=== PATIENT | female | born 1965 | race Caucasian/White ===

== ENCOUNTER 2019-12-08 09:00 | Day surgery (SDC) | payer BC ==
[~2019-12-08 09:00] MED LIST: Lactated Ringers 1,000 ML IV SCH
[2019-12-08] MEDS ORDERED: Propofol 200 MG/20 ML SDV ONE ×2 (11:15→12:17)
[2019-12-08] MEDS ORDERED: fentaNYL 100 MCG/2 ML SDV ONE (11:16)
--- NOTE | 2019-12-08 13:01 | OR ---
PREOPERATIVE DIAGNOSIS: Screening colonoscopy. POSTOPERATIVE DIAGNOSIS: Screening colonoscopy. PROCEDURE PERFORMED: Screening colonoscopy. INDICATION: The patient is a 54-year-old female who presents for her first screening colonoscopy at this time. PROCEDURE IN DETAIL: This was done in the endoscopy suite. Sedation was given per Anesthesia. She was placed in left lateral position. First, a rectal exam was done and was normal. Scope was then introduced into the rectum and slowly advanced to the rectum, sigmoid, descending, transverse, and ascending colon until the cecum was reached. Upon reaching the cecum, scope was slowly withdrawn looking at all mucosal surfaces on the way out. No mucosal abnormalities, lesions, or polyps were noted. FINAL DIAGNOSIS: Normal colonoscopy. BKD: 12/08/2019 12:29:26 MODL: 12/08/2019 12:53:45 /[id number]
== END 2019-12-08 13:35 | disposition home or self-care (01) ==
LOC: VM.SDS 09:00
PROVIDERS: ATTEND Surgery
DX: Z12.11 Encounter for screening for malignant neoplasm of colon (principal); I10 Essential (primary) hypertension; J45.909 Unspecified asthma, uncomplicated; E88.81 Metabolic syndrome and other insulin resistance; R73.03 Prediabetes; Z79.899 Other long term (current) drug therapy; Z79.51 Long term (current) use of inhaled steroids; Z79.82 Long term (current) use of aspirin
CPT/HCPCS: J2704; J3010; J7120

== ENCOUNTER 2021-10-03 08:41 | Emergency (ER) | payer BC ==
[2021-10-03] MEDS ORDERED: Bamlanivimab 700 MG, ETESEVIMAB 1,400 MG in Sodium Chloride 0.9% 100 ML IV ONE (09:09)
[2021-10-03] MEDS ORDERED: Sodium Chloride 0.9% 10 ML Syringe FLUSH PRN (09:09)
[2021-10-03] MEDS ORDERED: diphenhydrAMINE 50 MG/ML SDV IVPUSH PRN (09:09)
[2021-10-03] MEDS ORDERED: EPINEPHrine 1 MG/1 ML Amp IM PRN (09:09)
[2021-10-03] MEDS ORDERED: Famotidine 20 MG/2 ML SDV IVPUSH PRN (09:09)
[2021-10-03] MEDS ORDERED: methylPREDNISolone Sodium Succinate 125 MG/2 ML SDV IVPUSH PRN (09:09)
[2021-10-03] MEDS ORDERED: Sodium Chloride 0.9% 10 ML Syringe FLUSH SCH (09:15)
--- NOTE | 2021-10-03 09:35 | EDM.PDOC ---
ED HPI GENERAL MEDICAL PROBLEM - General Chief Complaint: Respiratory Problem Stated Complaint: SOB Time Seen by Provider: 10/03/21 09:08 Source of Information: Reports: Patient History Limitations: Reports: No Limitations - History of Present Illness INITIAL COMMENTS - FREE TEXT/NARRATIVE: Patient presents to the ED for shortness of breath, body aches, cough, fatigue and covid positive. She has been ill for about 7 days. [facility] and tested positive. She had been having some dry heaves, loss of appetite and loss of smell and taste so she was also given IV fluids, zofran and toradol. All weekend she has been isolating, drinking fluids and taking tylenol for body aches. She was on the list to receive monoclonal antibodies today but presented to the ED with concerns for shortness of breath. she does have asthma, no nebulizer at home. Onset Date: 09/27/21 - Related Data Allergies Allergy/AdvReac Type Severity Reaction Status Date / Time MARJ Inhibitors Allergy Cough Verified 10/03/21 09:01 Home Meds: Home Meds Albuterol Sulfate [Proair Hfa] 2 puff IH Q4H 11/26/19 [History] Aspirin [Halfprin] 81 mg PO DAILY 11/26/19 [History] Cetirizine [ZyrTEC] 10 mg PO DAILY PRN 11/26/19 [History] Ferrous Sulfate 325 mg PO DAILY 11/26/19 [History] Fluticasone/Salmeterol [Advair 250-50] 1 puff INH BID 11/26/19 [History] Multivitamin [Multivitamins] 1 each PO DAILY 11/26/19 [History] Telmisartan 40 mg PO DAILY 11/26/19 [History] hydroCHLOROthiazide [Hydrochlorothiazide] 25 mg PO DAILY 11/26/19 [History] Albuterol Sulfate 0.63 mg IH Q4H PRN #30 vial.neb 10/03/21 [Rx] Benzonatate [Tessalon Perles] 100 mg PO Q8H PRN #30 cap 10/03/21 [Rx] Ondansetron [Zofran ODT] 4 mg PO Q6H PRN #15 tab.dis 10/03/21 [Rx] Potassium Chloride 20 meq PO BID #14 tab.er.prt 10/03/21 [Rx] Sodium Chloride 1,000 mg MC TID #12 tablet.daysi 10/03/21 [Rx] Past Medical History Cardiovascular History: Reports: Hypertension Respiratory History: Reports: Asthma Musculoskeletal History: Reports: None Neurological History: Reports: None Psychiatric History: Reports: None Endocrine/Metabolic History: Reports: Other (See Below) Other Endocrine/Metabolic History: impaired glucose. metabolic syndrome. prediabetes Hematologic History: Reports: None - Infectious Disease History Infectious Disease History: Reports: Novel Coronavirus - Past Surgical History Head Surgeries/Procedures: Reports: None GI Surgical History: Reports: Cholecystectomy Female Surgical History: Reports: LEEP Endocrine Surgical History: Reports: None Social & Family History - Tobacco Use Tobacco Use Status *Q: Never Tobacco User - Recreational Drug Use Recreational Drug Use: No Drug Use in Last 12 Months: No ED ROS GENERAL - Review of Systems Review Of Systems: See Below Constitutional: Reports: Chills, Malaise, Weakness, Fatigue, Decreased Appetite HEENT: Reports: Other (loss of smell and taste) Respiratory: Reports: Shortness of Breath, Cough. Denies: Wheezing Cardiovascular: Reports: Dyspnea on Exertion. Denies: Chest Pain, Edema GI/Abdominal: Reports: Decreased Appetite, Nausea. Denies: Abdominal Pain, Diarrhea : Reports: No Symptoms Musculoskeletal: Reports: Muscle Pain Skin: Reports: No Symptoms Neurological: Reports: Headache, Weakness Psychiatric: Reports: No Symptoms Hematologic/Lymphatic: Reports: No Symptoms ED EXAM, GENERAL - Physical Exam Exam: See Below Exam Limited By: No Limitations General Appearance: Alert, WD/WN, No Apparent Distress, Anxious, Other (weepy) Eye Exam: Bilateral Eye: EOMI, Normal Inspection, PERRL Ears: Normal External Exam, Normal Canal, Hearing Grossly Normal, Normal TMs Nose: Normal Inspection Throat/Mouth: Normal Inspection, Normal Lips, Normal Voice, No Airway Compromise, Other (mild dry mucous membranes) Head: Atraumatic Neck: Normal Inspection. No: Lymphadenopathy (L), Lymphadenopathy (R) Respiratory/Chest: No Respiratory Distress, Lungs Clear, Normal Breath Sounds, No Accessory Muscle Use Cardiovascular: Normal Peripheral Pulses, No Murmur, No Rub, Tachycardia GI/Abdominal: Normal Bowel Sounds, Soft, Non-Tender, No Abnormal Bruit. No: Rigid, Rebound Back Exam: Normal Inspection Extremities: Normal Inspection, Normal Range of Motion, Non-Tender, No Pedal Edema Neurological: Alert, Oriented, CN II-XII Intact, Normal Cognition, No Motor/Sensory Deficits Skin Exam: Warm #1 Interpretation EKG Date: 10/03/21 Time: 09:30 Rhythm: NSR (with baseline wander) Rate (Beats/Min): 92 [place]: Normal ST-T: Other (non specific) QT: Prolonged (borderline at 398) Course - Vital Signs Last Recorded V/S: Last Vital Signs Temp 36.7 C 10/03/21 08:48 Pulse 93 10/03/21 09:42 Resp 18 10/03/21 09:42 BP 156/85 H 10/03/21 09:42 Pulse Ox 96 10/03/21 09:42 - Orders/Labs/Meds Orders: Active Orders 24 hr Category Date Time Status Incentive Spirometry [RT Incentive Spirometry] [RC] Care 10/03/21 09:43 Active Q1HWA Vital Signs [RC] Q15M Care 10/03/21 09:10 Active EPINEPHrine [Adrenalin] Med 10/03/21 09:09 Active 0.3 mg IM ASDIRECTED PRN Famotidine [Pepcid] Med 10/03/21 09:09 Active 20 mg IVPUSH ASDIRECTED PRN Sodium Chloride 0.9% [Saline Flush] Med 10/03/21 09:09 Active 10 ml FLUSH ASDIRECTED PRN Sodium Chloride 0.9% [Saline Flush] Med 10/03/21 09:15 Active 30 ml FLUSH ASDIRECTED diphenhydrAMINE [Benadryl] Med 10/03/21 09:09 Active 50 mg IVPUSH ASDIRECTED PRN methylPREDNISolone Sod Succ [Solu-MEDROL] Med 10/03/21 09:09 Active 125 mg IVPUSH ASDIRECTED PRN Peripheral IV Insertion Adult [OM.PC] Routine Oth 10/03/21 09:09 Ordered Medication Orders Diphenhydramine HCl (Diphenhydramine 50 Mg/Ml Sdv) 50 mg IVPUSH ASDIRECTED PRN PRN Reason: hypersensitivity reaction Epinephrine HCl (Epinephrine 1 Mg/1 Ml Amp) 0.3 mg IM ASDIRECTED PRN PRN Reason: hypersensitivity reaction Famotidine (Famotidine 20 Mg/2 Ml Sdv) 20 mg IVPUSH ASDIRECTED PRN PRN Reason: hypersensitivity reaction Methylprednisolone Sodium Succinate (Methylprednisolone Sodium Succinate 125 Mg/2 Ml Sdv) 125 mg IVPUSH ASDIRECTED PRN PRN Reason: hypersensitivity reaction Sodium Chloride (Sodium Chloride 0.9% 10 Ml Syringe) 10 ml FLUSH ASDIRECTED PRN PRN Reason: Keep Vein Open Sodium Chloride (Sodium Chloride 0.9% 10 Ml Syringe) 30 ml FLUSH ASDIRECTED MOSHE Labs: Laboratory Tests 10/03/21 10/03/21 10/03/21 Range/Units 09:37 09:37 09:37 WBC 3.2 L (4.0-10.0) x10^3/uL RBC 4.72 (4.00-5.50) x10^6/uL Hgb 13.9 (12.0-16.0) g/dL Hct 36.8 (33.0-47.0) % MCV 78.0 (78.0-93.0) fL MCH 29.4 (26.0-32.0) pg MCHC 37.8 H (32.0-36.0) g/dL RDW Coeff of Leo 11.9 (10.0-15.0) % Plt Count 143 (130-400) x10^3/uL Immature Gran % (Auto) 0.60 H (0.00-0.43) % Neut % (Auto) 76.8 (50.0-80.0) % Lymph % (Auto) 13.8 L (25.0-50.0) % [place] % (Auto) 8.5 (2.0-11.0) % Eos % (Auto) 0.0 (0.0-4.0) % Baso % (Auto) 0.3 (0.2-1.2) % Neut # (Auto) 2.4 (1.8-7.7) x10^3/uL Lymph # (Auto) 0.4 L (1.0-4.8) x10^3/uL [place] # (Auto) 0.3 (0.0-0.8) x10^3/uL Eos # (Auto) 0.0 (0.0-0.5) x10^3/uL Baso # (Auto) 0.0 (0.0-0.2) x10^3/uL Immature Gran # (Auto) 0.02 (0.00-0.07) x10^3/uL D-Dimer, Quantitative 0.58 (<=0.58) mg/LFEU Sodium 121 L* (136-145) mmol/L Potassium 2.3 L* (3.5-5.1) mmol/L Chloride 82 L (98-107) mmol/L Carbon Dioxide 33 H (21-32) mmol/L Anion Gap 8.3 (5-15) mmol/L BUN 9 (7-18) mg/dL Creatinine 0.5 L (0.55-1.02) mg/dL Est Cr Clr Drug Dosing TNP Estimated GFR (MDRD) > 60 Glucose 157 H (70-99) mg/dL Calcium 8.7 (8.5-10.1) mg/dL Corrected Calcium 9.1 (8.5-10.1) mg/dL Magnesium (1.8-2.4) mg/dL Total Bilirubin 0.8 (0.2-1.0) mg/dL AST 58 H (15-37) U/L ALT 73 H (14-59) U/L Alkaline Phosphatase 81 (46-116) U/L Troponin I High Sens 10 (<=51) ng/L C-Reactive Protein < 0.2 (<=0.9) mg/dL Total Protein 7.0 (6.4-8.2) g/dL Albumin 3.5 (3.4-5.0) g/dL Globulin 3.5 Albumin/Globulin Ratio 1.00 Procalcitonin (0.1-0.50) ng/mL 10/03/21 10/03/21 Range/Units 09:37 09:37 WBC (4.0-10.0) x10^3/uL RBC (4.00-5.50) x10^6/uL Hgb (12.0-16.0) g/dL Hct (33.0-47.0) % MCV (78.0-93.0) fL MCH (26.0-32.0) pg MCHC (32.0-36.0) g/dL RDW Coeff of Leo (10.0-15.0) % Plt Count (130-400) x10^3/uL Immature Gran % (Auto) (0.00-0.43) % Neut % (Auto) (50.0-80.0) % Lymph % (Auto) (25.0-50.0) % [place] % (Auto) (2.0-11.0) % Eos % (Auto) (0.0-4.0) % Baso % (Auto) (0.2-1.2) % Neut # (Auto) (1.8-7.7) x10^3/uL Lymph # (Auto) (1.0-4.8) x10^3/uL [place] # (Auto) (0.0-0.8) x10^3/uL Eos # (Auto) (0.0-0.5) x10^3/uL Baso # (Auto) (0.0-0.2) x10^3/uL Immature Gran # (Auto) (0.00-0.07) x10^3/uL D-Dimer, Quantitative (<=0.58) mg/LFEU Sodium (136-145) mmol/L Potassium (3.5-5.1) mmol/L Chloride (98-107) mmol/L Carbon Dioxide (21-32) mmol/L Anion Gap (5-15) mmol/L BUN (7-18) mg/dL Creatinine (0.55-1.02) mg/dL Est Cr Clr Drug Dosing Estimated GFR (MDRD) Glucose (70-99) mg/dL Calcium (8.5-10.1) mg/dL Corrected Calcium (8.5-10.1) mg/dL Magnesium 1.9 (1.8-2.4) mg/dL Total Bilirubin (0.2-1.0) mg/dL AST (15-37) U/L ALT (14-59) U/L Alkaline Phosphatase (46-116) U/L Troponin I High Sens (<=51) ng/L C-Reactive Protein (<=0.9) mg/dL Total Protein (6.4-8.2) g/dL Albumin (3.4-5.0) g/dL Globulin Albumin/Globulin Ratio Procalcitonin <0.05 L (0.1-0.50) ng/mL Meds: Medications Generic Name Dose Route Start Last Admin Trade Name Freq PRN Reason Stop Dose Admin Diphenhydramine HCl 50 mg 10/03/21 09:09 Diphenhydramine 50 Mg/Ml Sdv IVPUSH ASDIRECTED PRN hypersensitivity reaction Epinephrine HCl 0.3 mg 10/03/21 09:09 Epinephrine 1 Mg/1 Ml Amp IM ASDIRECTED PRN hypersensitivity reaction Famotidine 20 mg 10/03/21 09:09 Famotidine 20 Mg/2 Ml Sdv IVPUSH ASDIRECTED PRN hypersensitivity reaction Methylprednisolone Sodium Succinate 125 mg 10/03/21 09:09 Methylprednisolone Sodium Succinate 125 Mg/2 Ml Sdv IVPUSH ASDIRECTED PRN hypersensitivity reaction Sodium Chloride 10 ml 10/03/21 09:09 Sodium Chloride 0.9% 10 Ml Syringe FLUSH ASDIRECTED PRN Keep Vein Open Sodium Chloride 30 ml 10/03/21 09:15 Sodium Chloride 0.9% 10 Ml Syringe FLUSH ASDIRECTED MOSHE Discontinued Medications Generic Name Dose Route Start Last Admin Trade Name Freq PRN Reason Stop Dose Admin Bamlanivimab 700 mg/ 160 mls @ 310 mls/hr 10/03/21 09:09 10/03/21 09:42 Etesevimab 1,400 mg/ Sodium IV 10/03/21 09:39 310 mls/hr Chloride ONETIME ONE Administration Potassium Chloride 20 meq/ 50 mls @ 50 mls/hr 10/03/21 10:32 10/03/21 11:18 Premix IV 10/03/21 11:31 50 mls/hr ONETIME ONE Administration Sodium Chloride 1,000 mls @ 999 mls/hr 10/03/21 10:35 10/03/21 11:18 Normal Saline IV 10/03/21 11:35 999 mls/hr ONETIME ONE Administration Potassium Bicarbonate 40 meq 10/03/21 10:33 10/03/21 11:17 Potassium Bicarbonate/Cit Ac 10 Meq Effervescent Tab PO 10/03/21 10:34 40 meq ONETIME ONE Administration Sodium Chloride 1 gm 10/03/21 10:33 10/03/21 11:17 Sodium Chloride 1 Gm Tab PO 10/03/21 10:34 1 gm ONETIME ONE Administration - Radiology Interpretation Free Text/Narrative:: chest x-ray with mild patchy bilateral infiltrates, interpreted by radiology - Re-Assessments/Exams Free Text/Narrative Re-Assessment/Exam: 10/03/21 09:42 Patient is covid positive, not hypoxic. slightly tachycardic. Will give her the monoclonal antibodies, check labs, ekg, chest x-ray. discussed incentive spirometer and nebs at home. discussed prone positioning 10/03/21 09:43 10/03/21 10:48 Pateint's sodium is low and her potassium is low. no concerning ekg changes. Will give her a salt tab, 1000 mg and send home on this for several days, will give potassium 20 meq IV and 40 meq po and send home on this. Encourage electrolyte replacement, oral potassium and potassium rich food. Needs follow up with PCP in three days which would be day 10 of symptoms for lab recheck at the very least. encourage sodium and potassium rich foods. Departure - Departure Time of Disposition: 12:18 Disposition: Home, Self-Care 01 Condition: Good Clinical Impression: COVID-19, Hyponatremia, Hypokalemia - Discharge Information *PRESCRIPTION DRUG MONITORING PROGRAM REVIEWED*: Not Applicable *COPY OF PRESCRIPTION DRUG MONITORING REPORT IN PATIENT JEAN: Not Applicable Prescriptions: Albuterol Sulfate 0.63 mg IH Q4H PRN #30 vial.neb PRN Reason: Dyspnea Potassium Chloride 20 meq PO BID #14 tab.er.prt Sodium Chloride 1,000 mg MC TID #12 tablet.daysi Benzonatate [Tessalon Perles] 100 mg PO Q8H PRN #30 cap PRN Reason: Cough Ondansetron [Zofran ODT] 4 mg PO Q6H PRN #15 tab.dis PRN Reason: Nausea Instructions: COVID-19 Frequently Asked Questions, Prone Position Therapy, Incentive Spirometer Record, Hyponatremia, Ront-py-Cdbo, How to Use an Incentive Spirometer, Hypokalemia, What You Should Know About COVID-19 to Protect Yourself and Others - CDC, Potassium Content of Foods, COVID-19: What to Do If You Are Sick- CDC (12/08/2020) Referrals: Tianna Longo DO [Primary Care Provider] - Forms: ED Department Discharge Additional Instructions: 1. You have covid 19 with normal oxygen. You need to continue to quarantine until 10/06 and after that continue to ear a mask around people and isolate as much as possible a long as you have symptoms 2. you were given monoclonal antibodies to nickerson your covid. These should start to make you feel better in the next 24-36 hours. 3. at home you can take tylenol or motrin to help with headaches, body aches, fever and muscle aches, alternate them every 4 hours as needed 4. you are given tessalon perrles These can be taken every 8 hours as needed for cough 5. you are prescribed nebulizer medication instead of your rescue medication. pick this up at the pharmacy along with a nebulizer machine. Take these every 4 hours as needed for cough and shortness of breath. 6. you are give a prescription for zofran to help with nausea and dry heaves. Pick this up and take every 8 hours as needed. THis will cause constipation. 7. you are given information on prone positioning. THis will help move away some of the fluid from the lungs and help you breathe better. try to do this at least 10-12 hours a day 8. You are given an incentive spirometer and need to use this every hour while awake, 10 repetitions each time. 9. Your sodium is low. You were given fluids and a salt tablet in the ED and need to take salt tablets three times a day for the next several days along with food or drinks with high sodium. 10. You potassium is low, you were given potassium in the iv, oral potassium and need to take oral potassium twice a day for several days along with eating potassium rich foods. 11. You need an appointment with your provider in 3 days for a recheck of your electrolytes. 12. return to the ED for worsening shortness of breath, breathing more than 20 times a minute. Symptoms from covid can linger for some time to include fatigue, confusion and cough. Sepsis Event Note (ED) - Focused Exam Vital Signs: Vital Signs Temp Pulse Resp BP Pulse Ox 10/03/21 09:42 93 18 156/85 H 96 10/03/21 08:48 36.7 C 105 H 20 169/90 H 98 - My Orders Last 24 Hours: My Active Orders 10/03/21 09:09 EPINEPHrine [Adrenalin] 0.3 mg IM ASDIRECTED PRN Famotidine [Pepcid] 20 mg IVPUSH ASDIRECTED PRN Sodium Chloride 0.9% [Saline Flush] 10 ml FLUSH ASDIRECTED PRN diphenhydrAMINE [Benadryl] 50 mg IVPUSH ASDIRECTED PRN methylPREDNISolone Sod Succ [Solu-MEDROL] 125 mg IVPUSH ASDIRECTED PRN Peripheral IV Insertion Adult [OM.PC] Routine 10/03/21 09:10 Vital Signs [RC] Q15M 10/03/21 09:15 Sodium Chloride 0.9% [Saline Flush] 30 ml FLUSH ASDIRECTED 10/03/21 09:43 Incentive Spirometry [RT Incentive Spirometry] [RC] Q1HWA - Assessment/Plan Last 24 Hours: My Active Orders 10/03/21 09:09 EPINEPHrine [Adrenalin] 0.3 mg IM ASDIRECTED PRN Famotidine [Pepcid] 20 mg IVPUSH ASDIRECTED PRN Sodium Chloride 0.9% [Saline Flush] 10 ml FLUSH ASDIRECTED PRN diphenhydrAMINE [Benadryl] 50 mg IVPUSH ASDIRECTED PRN methylPREDNISolone Sod Succ [Solu-MEDROL] 125 mg IVPUSH ASDIRECTED PRN Peripheral IV Insertion Adult [OM.PC] Routine 10/03/21 09:10 Vital Signs [RC] Q15M 10/03/21 09:15 Sodium Chloride 0.9% [Saline Flush] 30 ml FLUSH ASDIRECTED 10/03/21 09:43 Incentive Spirometry [RT Incentive Spirometry] [RC] Q1HWA
--- NOTE | 2021-10-03 09:45 | CR ---
[id number] RAD/RAD Chest PA or AP 1V EXAM: FRONTAL CHEST INDICATION: COVID,SHORT OF BREATH. COMPARISON: None. DISCUSSION: Mild patchy bilateral infiltrates, left greater than right. Linear scarring or atelectasis left lung base. Normal heart size. No effusions. IMPRESSION: 1. Mild patchy bilateral infiltrates. Quan An MD 10/03/21 0944 Thank you for allowing us to participate in the care of your patient.
[2021-10-03 10:12] LABS: CHLORIDE,CL 82 mmol/L (98-107)
[2021-10-03 10:14] LABS: ANION GAP 8.3 mmol/L (5-15); SODIUM,NA 121 mmol/L (136-145)
[2021-10-03] MEDS ORDERED: Potassium Chloride Riders 20 MEQ in Premix Bag 1 BAG IV ONE (10:32)
[2021-10-03] MEDS ORDERED: Sodium Chloride 1 GM Tab PO ONE (10:33)
[2021-10-03] MEDS ORDERED: Potassium Bicarbonate/Cit Ac 10 MEQ Effervescent Tab PO ONE (10:33)
[2021-10-03] MEDS ORDERED: Sodium Chloride 0.9% 1,000 ML IV ONE (10:35)
[2021-10-03 13:51] VITALS: BP 142/78; PULSE 78
== END 2021-10-03 12:45 | disposition home or self-care (01) ==
LOC: VM.ED 08:41
DX: U07.1 COVID-19 (principal); E87.1 Hypo-osmolality and hyponatremia; E87.6 Hypokalemia; I10 Essential (primary) hypertension; J45.909 Unspecified asthma, uncomplicated; Z88.8 Allergy status to other drugs, medicaments and biological substances; Z79.82 Long term (current) use of aspirin; Z79.899 Other long term (current) drug therapy
CPT/HCPCS: 71045; 80053; 83735; 84145; 84484; 85025; 85379; 86140; 93005; 96365; 99285; A9270; J3480; J7030; M0245; Q0245

== ENCOUNTER 2023-07-15 22:47 | Emergency (ER) | payer BC ==
[2023-07-15] MEDS ORDERED: Ondansetron 4 MG Tab.DIS PO ONE (23:00)
[2023-07-15 23:29] LABS: BASOPHILS PERCENT AUTO 0.3 % (0.2-1.2); EOSINOPHILS ABSOLUTE AUTO 0.1 x10^3/uL (0.0-0.5); EOSINOPHILS PERCENT AUTO 0.7 % (0.0-4.0); HEMATOCRIT 35.2 % (33.0-47.0); HEMOGLOBIN 12.9 g/dL (12.0-16.0); IMMATURE GRAN ABSOLUTE AUTO 0.01 x10^3/uL (0.00-0.07); LYMPHOCYTES ABSOLUTE AUTO 1.5 x10^3/uL (1.0-4.8); LYMPHOCYTES PERCENT AUTO 20.8 % (25.0-50.0); MEAN CORPUSCULAR HEMOGLOBIN 30.3 pg (26.0-32.0); MEAN CORPUSCULAR HGB CONC 36.6 g/dL (32.0-36.0); MEAN CORPUSCULAR VOLUME 82.6 fL (78.0-93.0); MONOCYTES ABSOLUTE AUTO 0.6 x10^3/uL (0.0-0.8); MONOCYTES PERCENT AUTO 7.8 % (2.0-11.0); NEUTROPHILS ABSOLUTE AUTO 4.9 x10^3/uL (1.8-7.7); NEUTROPHILS PERCENT AUTO 70.3 % (50.0-80.0); PLATELET COUNT,PLT 208 x10^3/uL (130-400); RED BLOOD CELL COUNT 4.26 x10^6/uL (4.00-5.50)
[2023-07-15] MEDS ORDERED: Sodium Chloride 0.9% 1,000 ML IV SCH (23:45)
[2023-07-15 23:50] LABS: A/G RATIO 1.15; ALANINE AMINOTRANSFERASE,ALT 38 U/L (14-59); ALBUMIN 3.8 g/dL (3.4-5.0); ALKALINE PHOSPHATASE 67 U/L (46-116); ASPARTATE AMNIOTRANSFERASE,AST 35 U/L (15-37); BILIRUBIN TOTAL 0.5 mg/dL (0.2-1.0); BLOOD UREA NITROGEN,BUN 18 mg/dL (7-18); C-REACTIVE PROTEIN 0.06 mg/dL (<=0.30); CALCIUM 9.2 mg/dL (8.5-10.1); CARBON DIOXIDE,CO2 29 mmol/L (21-32); CHLORIDE,CL 87 mmol/L (98-107); CREATININE 0.6 mg/dL (0.55-1.02); GLUCOSE RANDOM 109 mg/dL (70-99); POTASSIUM,K 3.1 mmol/L (3.5-5.1); PROTEIN TOTAL,TP 7.1 g/dL (6.4-8.2)
[2023-07-15 23:51] LABS: ANION GAP 13.1 mmol/L (5-15); ESTIMATED GFR 103 mL/min (>=60)
[2023-07-15 23:52] LABS: SODIUM,NA 126 mmol/L (136-145)
[2023-07-15] MEDS ORDERED: Sodium Chloride 0.9% 10 ML Syringe FLUSH PRN (23:57)
[2023-07-16] MEDS ORDERED: LORazepam 2 MG/ML SDV IVPUSH ONE (00:05)
[2023-07-16] MEDS ORDERED: Take Home: Ondansetron 4 MG Tab.DIS, 5 Tab Pack PO ONE (00:06)
== END 2023-07-16 01:01 | disposition home or self-care (01) ==
LOC: VM.ED 22:47
DX: E87.1 Hypo-osmolality and hyponatremia (principal); I10 Essential (primary) hypertension; J45.909 Unspecified asthma, uncomplicated; Z86.16 Personal history of COVID-19; Z91.048 Other nonmedicinal substance allergy status; Z79.899 Other long term (current) drug therapy
CPT/HCPCS: 36415; 74019; 80053; 85025; 86140; 96361; 96374; 99283; 99283-25; A9270-GY; J2060; J7030; Q0162